=== PATIENT | female | born 1990 | race Caucasian/White ===

== ENCOUNTER 2016-10-04 18:02 | Emergency (ER) | payer SELFPAY ==
[2016-10-04 18:03] VITALS: BMI 29.0
[2016-10-04 18:42] VITALS: BP 138/97; PULSE 128; RESP 18; O2SAT 100
--- NOTE | 2016-10-04 19:04 | ED PDOC ---
HPI: General Adult Time Seen by Provider: 10/04/16 18:48 Chief Complaint (Nursing): Flu-like Symptoms Chief Complaint (Provider): Flu-like Symptoms History Per: Patient History/Exam Limitations: no limitations Onset/Duration Of Symptoms: Days (x1) Additional Complaint(s): Ernestine Martini is a 26 year old female that presents to the ED with a chief complaint of fever, diffuse body aches, and neck pain that she began experiencing yesterday night. She denies any ear pain, throat pain, vomiting, diarrhea, or cough. Patient reports that she took Tylenol this morning, but that her symptoms have not resolved. Past Medical History Reviewed: Historical Data, Nursing Documentation, Vital Signs Vital Signs: Last Vital Signs Temp 101.6 F H 10/04/16 20:10 Pulse 128 H 10/04/16 18:39 Resp 18 10/04/16 18:39 BP 138/97 H 10/04/16 18:39 Pulse Ox 100 10/04/16 19:14 - Medical History PMH: No Chronic Diseases - Family History Family History: States: Unknown Family Hx - Social History Current smoker - smoking cessation education provided: No Alcohol: None Drugs: Denies - Home Medications Home Medications: Ambulatory Orders Medication Instructions Recorded Ascorbic Acid [Vitamin C] 500 mg PO DAILY #0 tab 11/09/14 Docusate Sodium/Ferrous Fumara 0 ter PO DAILY #30 ter 11/09/14 [Leah-Sequels 100 mg -150 mg] RX: Acetaminophen [Tylenol 325mg 650 mg PO Q6 PRN #0 tab 11/09/14 tab] - Allergies Allergies/Adverse Reactions: Allergies Allergy/AdvReac Type Severity Reaction Status Date / Time aspirin Allergy SWELLING Verified 10/04/16 18:39 Penicillins Allergy RASH Verified 10/04/16 18:39 Review of Systems Constitutional: Positive for: Fever, Other (diffuse myalgias) ENT: Negative for: Ear Pain, Throat Pain Respiratory: Negative for: Cough Gastrointestinal: Negative for: Vomiting, Diarrhea Musculoskeletal: Positive for: Neck Pain Physical Exam - Reviewed Nursing Documentation Reviewed: Yes Vital Signs Reviewed: Yes - Physical Exam Appears: Positive for: Non-toxic, No Acute Distress Head Exam: Positive for: ATRAUMATIC, NORMOCEPHALIC Skin: Positive for: Normal Color, Warm Eye Exam: Positive for: Normal appearance ENT: Positive for: Normal ENT Inspection, TM Is/Are (normal) Neck: Positive for: Normal (no nuchal rigidity) Cardiovascular/Chest: Positive for: Regular Rate, Rhythm. Negative for: Murmur Respiratory: Positive for: Normal Breath Sounds. Negative for: Wheezing Gastrointestinal/Abdominal: Positive for: Normal Exam, Soft. Negative for: Tenderness Extremity: Positive for: Normal ROM Neurologic/Psych: Positive for: Alert, Oriented - Laboratory Results Result Diagrams: 10/04/16 19:26 10/04/16 19:26 - ECG O2 Sat by Pulse Oximetry: 100 (RA) Pulse Ox Interpretation: Normal Medical Decision Making Medical Decision Making: Impression: Flu-Like Symptoms Plan: * CMP (wnl) * CBC (low wbc) * Flu Swab (-) * Reevaluation Scribe Attestation: Documented by Pamela Laura, acting as a scribe for Jeaneth Harry PA-C. Provider Scribe Attestation: All medical record entries made by the Scribe were at my direction and personally dictated by me. I have reviewed the chart and agree that the record accurately reflects my personal performance of the history, physical exam, medical decision making, and the department course for this patient. I have also personally directed, reviewed, and agree with the discharge instructions and disposition. Disposition - Clinical Impression Clinical Impression: Viral illness - Patient ED Disposition Is Patient to be Admitted: No Counseled Patient/Family Regarding: Diagnosis, Need For Followup - Disposition Referrals: [facility] [Outside] Disposition: Routine/Home Disposition Time: 20:37 Condition: GOOD Additional Instructions: Tylenol or motrin for pain and fever. Follow-up with PMD. Instructions: Viral Syndrome (ED)
[2016-10-04 19:46] LABS: HEMATOCRIT 42.5 % (34.0-47.0); MEAN CORPUSCULAR HEMOGLOBIN 29.1 pg (27.0-31.0); MEAN CORPUSCULAR HGB CONC 33.4 g/dL (33.0-37.0); RED CELL DISTRIBUTION WIDTH 13.2 % (11.5-14.5)
[2016-10-04 19:49] LABS: ALB/GLOB RATIO 1.3 (1.0-2.1); ALKALINE PHOSPHATASE 69 U/L (38-126); ALT/SGPT 30 U/L (9-52); AST/SGOT 32 U/L (14-36); BILIRUBIN,TOTAL 0.2 mg/dl (0.2-1.3); BLOOD UREA NITROGEN 7 mg/dl (7-17); CALCIUM 9.3 mg/dL (8.4-10.2); CARBON DIOXIDE 23 mmol/L (22-30); CHLORIDE 102 mmol/L (98-107); GFR AFRICAN-AMERICAN > 60; GLUCOSE,RANDOM 96 mg/dL (65-105); POTASSIUM 3.8 MMOL/L (3.6-5.0); SODIUM 136 mmol/l (132-148)
[2016-10-04 19:51] LABS: WHITE BLOOD COUNT 4.2 K/uL (4.8-10.8)
[2016-10-04 19:52] LABS: MEAN CELL VOLUME 87.2 fl (81.0-99.0)
[2016-10-04 21:14] VITALS: TEMP 99
== END 2016-10-04 21:16 | disposition home or self-care (01) ==
LOC: H.ER 18:02
DX: B34.9 Viral infection, unspecified (principal); R51 Headache